=== PATIENT | male | born 1955 | race Caucasian/White ===

== ENCOUNTER 2017-06-24 08:26 | Day surgery (SDC) | payer OTHER ==
[~2017-06-24] VITALS: Ht 175.3 cm; Wt 65.8 kg
[~2017-06-24 08:26] MED LIST: LISINOPRIL-HCT1 EACH PO
== END 2017-06-24 09:38 | disposition home or self-care (01) ==
LOC: DS 08:26 → OPS 08:26 → DS 09:30 → OPS 09:30 → DS 09:45
PROVIDERS: Ophthalmology
PROC: 08RJ3JZ Replacement of Right Lens with Synthetic Substitute, Percutaneous Approach (ICD-10-PCS; principal; 2017-06-24 09:30)
DX: H25.11 Age-related nuclear cataract, right eye (principal); Z87.891 Personal history of nicotine dependence; Z79.899 Other long term (current) drug therapy; Z98.890 Other specified postprocedural states
CPT/HCPCS: 00140; J2250